=== PATIENT | male | born 1950 | race Caucasian/White ===

== ENCOUNTER 2016-09-15 06:50 | Emergency (ER) | payer OTHER ==
[2016-09-15 06:59] VITALS: TEMP 97.7
--- NOTE | 2016-09-15 07:42 | EDPHY ---
H & P Stated Complaint: pt says he slipped and fell yesterday, c/o pain swelling in L ankle/foot Time Seen by Provider: 09/15/16 07:41 - Medical/Surgical History Hx Asthma: No Hx Chronic Respiratory Disease: No Hx Diabetes: No Hx Cardiac Disease: No Hx Renal Disease: No Hx Cirrhosis: No Hx Alcoholism: No Hx HIV/AIDS: No Hx Splenectomy or Spleen Trauma: No Other PMH: bilat knee surg, skin ca removed, ddd - Social History Smoking Status: Former smoker Constitutional: Initial Vital Signs Temperature (C) 36.5 C 09/15/16 06:54 Heart Rate 85 09/15/16 06:54 Respiratory Rate 18 09/15/16 06:54 Blood Pressure 137/74 H 09/15/16 06:54 O2 Sat (%) 96 09/15/16 06:54 O2 Delivery Mode Room Air Allergies/Adverse Reactions: Sulfa (Sulfonamide Antibiotics) Allergy (Verified 09/15/16 06:59) Home Medications: Medication Instructions Recorded HYDROcodone/APAP 325 [[place] 1 - 2 each PO Q4-6PRN PRN #20 tab 09/15/16 10/325] Soma 09/15/16 Medical Decision Making ED Course/Re-evaluation: CHIEF COMPLAINT: Left heel pain HISTORY OF PRESENT ILLNESS: The patient is a 65 y/o male complaining of left heel pain with weight bearing secondary to an injury yesterday. He says [place] started to slid [place] an incline. He caught himself with his left ankle and had immediate "electric pain" along the lateral side. He now cramping extending from the base of his left heel to his lateral knee. He was able to walk on the toes of his left foot but has too much pain to bear weight on his heel. He denies weakness, paresthesias, or other injuries. REVIEW OF SYSTEMS: A 10 point review of systems was performed and is negative with the exception of the elements mentioned in the history of present illness. PHYSICAL EXAM: HR, BP, O2 Sat, RR. Temp noted General Appearance: Alert, well hydrated, appropriate, and non-toxic appearing. Head: Atraumatic without scalp tenderness or obvious injury Eyes: Pupils equal, round, reactive to light and accommodation, EOMI, no trauma , no injection. Ears: Clear bilaterally, no perforation, normal landmarks Nose: Atraumatic, no rhinorrhea, clear. Throat: There is no erythema or exudates, no lesions, normal tonsils, mucus membranes moist. Neck: Supple, 2+ carotid upstroke, nontender, no lymphadenopathy. Respiratory: No retractions, no distress, no wheezes, and no accessory muscle use. Lungs are clear to auscultation bilaterally. Cardiovascular: Regular rate and rhythm, no murmurs, rubs, or gallops. Bilateral carotid, radial, dorsalis pedis, and posterior tibial pulses intact. Good capillary refill all extremities. Gastrointestinal: Abdomen is soft, nontender, non-distended, no masses, no rebound, no guarding, no peritoneal signs. Musculoskeletal: Normal active ROM of all extremities, atraumatic. Neurological: Alert, appropriate, and interactive. The patient has normal DTRs and non-focal cranial nerves, motor, sensory, and cerebellar exam. Skin: No rashes, good turgor, no nodules on palpation. Past medical history: Degenerative disc disease Past surgical history: Bilateral knee surgeries Family history: Noncontributory Social history: DIAGNOSTICS/PROCEDURES/CRITICAL CARE TIME: Study: Left ankle x-ray Indication: pain, trauma Results: X-ray of the left ankle was obtained. The results of the study are 1. Evidence of underlying chondrocalcinosis in the tibiotalar articulation. Possible loose bodies posteriorly. 2. Large enthesophyte at plantar insertion of the calcaneus and evidence of underlying chronic plantar fasciitis or old injury. 3. Inflammatory change and tendinitis distal Achilles tendon. The study was read by the radiologist, Dr. Baker. I viewed the images myself on the PACS system. Study: CT of the left foot Indication: Pain, injury, Results: CT scan of the foot was obtained. The results of the study are 1. Severe chronic plantar fasciitis. There could be an acute component with tear and avulsion from the insertion of the calcaneus versus chronic calcifications within the plantar fascia. Large enthesophyte at the plantar insertion of the calcaneus. 2. Moderate to severe tendinopathy distal Achilles tendon with soft tissue calcification. 3. Tendinopathy peroneus longus tendon and mild tenosynovitis. 4. Degenerative change tibiotalar joint with debris or loose bodies posteriorly and chondrocalcinosis. The study was read by the radiologist, Dr. Baker. I viewed the images myself on the PACS system. DIFFERENTIAL DIAGNOSIS: The differential diagnosis for the patient's foot pain included but was not limited to plantar fascia tear, plantar fasciitis, heel spur, fracture, arthritis. MEDICAL DECISION MAKING: This is a healthy 65 y/o male presenting with left heel and lateral ankle pain following an injury yesterday. His pain is not reproducible on exam. He is neurovascularly intact. Plan for left ankle x-ray. X-ray shows some calcifications underling the calcaneus that could indicate plantar fasciitis. Heel spur also present. Plan for foot CT to better evaluate the area. CT confirms severe chronic plantar fasciitis that could have acute component. Patient will be discharged in post op shoe with instructions to use ibuprofen and [place] for symptoms. He's been referred to podiatry for follow up. Return precautions given. He is comfortable with this plan. Departure - Departure Disposition: Home, Routine, Self-Care Clinical Impression: possible torn plantar fascia, Left foot pain Condition: Good Instructions: Heel Spur (ED) Additional Instructions: 1. Take 600mg ibuprofen 3 times daily for the next 2-3 days. 2. Use [place] as prescribed when needed for pain. 3. Wear post op shoe for comfort until follow up. Weight bare as tolerated or use crutches. 4. Follow up with Dr. Zee, cloud developer, within the week. 5. Return to the ED for severe pain, dramatic increase in redness or swelling, weakness or numbness in your foot, or other worsening of condition. Referrals: Arpita Ramos PA [Primary Care Provider] - As per Instructions Amador Zee DPM [Doctor of Podiatric Medicine] - As per Instructions Prescriptions: HYDROcodone/APAP 10/325 [[place] 10/325] 1 - 2 each PO Q4-6PRN PRN #20 tab PRN Reason: Pain, Moderate Report Scribed for: Joel Vasquez Report Scribed by: Amanda Kay Date of Report: 09/15/16 Time of Report: 07:45
--- NOTE | 2016-09-15 08:53 | DX ---
Left Ankle, Three Views History: Ankle pain after a fall. Findings: Mild soft tissue swelling is seen at the left ankle. There is evidence of underlying chondr ocalcinosis with calcification at the tibiotalar articulation. Possible loose bodies are seen posteri gilberto. No evidence for acute fracture or dislocation. A large enthesophyte is seen in the plantar inse rtion of the calcaneus. Soft tissue calcification is also seen in the region of the plantar fascia. S oft tissue swelling is seen at the distal Achilles. Impression: 1. Evidence of underlying chondrocalcinosis in the tibiotalar articulation. Possible loose bodies pos teriorly. 2. Large enthesophyte at plantar insertion of the calcaneus and evidence of underlying chronic planta r fasciitis or old injury. 3. Inflammatory change and tendinitis distal Achilles tendon.
--- NOTE | 2016-09-15 09:25 | CT ---
CT Lower Extremity, Left Ankle History: Severe calcaneus pain when bearing weight. Comparison: X-rays also performed today. Technique: 1.5-mm helical images were obtained of the left ankle without contrast. Multiplanar reform ation was performed. Radiation dose reduction technique was utilized. Findings: No evidence for acute fracture. There is chondrocalcinosis in the tibiotalar joint. There i s debris or loose bodies posterior recess of the tibiotalar joint. The plantar fascia is thickened th roughout, particularly the medial cord. Large enthesophyte is seen in the plantar insertion of the ca lcaneus. There is mild adjacent erosion or possible avulsion from the plantar insertion of the calcan eus. Avulsion or soft tissue calcification is seen near the enthesophyte and also in the plantar fasc ia 2.3 cm from the insertion to the calcaneus. Distal Achilles tendon is enlarged with calcifications at the insertion to the calcaneus. Peroneus longus tendon is in enlarged and probable mild fluid dis tention of the tendon sheath. Impression: 1. Severe chronic plantar fasciitis. There could be an acute component with tear and avulsion from th e insertion of the calcaneus versus chronic calcifications within the plantar fascia. Large enthesoph yte at the plantar insertion of the calcaneus. 2. Moderate to severe tendinopathy distal Achilles tendon with soft tissue calcification. 3. Tendinopathy peroneus longus tendon and mild tenosynovitis. 4. Degenerative change tibiotalar joint with debris or loose bodies posteriorly and chondrocalcinosis . Results called to Dr. Joel Vasquez.
[2016-09-15 09:30] VITALS: BP 146/86; PULSE 80; RESP 16; O2SAT 98
== END 2016-09-15 09:33 | disposition home or self-care (01) ==
DX: S99.922A Unspecified injury of left foot, initial encounter (principal); Z87.891 Personal history of nicotine dependence; W01.0XXA Fall on same level from slipping, tripping and stumbling without subsequent striking against object, initial encounter
CPT/HCPCS: L3260

== ENCOUNTER 2017-07-15 09:22 | Day surgery (SDC) | payer OTHER ==
[2017-07-15] MEDS ORDERED: ETHYL ALCOHOL 98% 5 ML AMP MISC ONE (11:00)
[2017-07-15 11:05] VITALS: PULSE 58; RESP 16
[2017-07-15] MEDS ORDERED: MEPERIDINE 25 MG/ML SYR IVP PRN (11:06)
[2017-07-15] MEDS ORDERED: FLUMAZENIL 0.5 MG/5 ML MDV IVP PRN (11:06)
[2017-07-15] MEDS ORDERED: HEPARIN 10,000 UNIT/10 ML MDV IVP PRN (11:06)
[2017-07-15] MEDS ORDERED: GLUCAGON HCL 1 MG VIAL IVP PRN (11:06)
[2017-07-15] MEDS ORDERED: MIDAZOLAM 2 MG/2 ML VIAL IVP PRN (11:06)
[2017-07-15] MEDS ORDERED: PROTAMINE SULFATE 50 MG/5 ML VIAL IVP PRN (11:06)
[2017-07-15] MEDS ORDERED: fentaNYL 100 MCG/2 ML INJ IVP PRN (11:06)
[2017-07-15] MEDS ORDERED: ALTEPLASE 2 MG VIAL IVP PRN (11:06)
[2017-07-15] MEDS ORDERED: NALOXONE HCL 0.4 MG/ML INJ IVP PRN (11:06)
[2017-07-15] MEDS ORDERED: NS 1,000 ML IV SCH (11:15)
[2017-07-15] MEDS ORDERED: IOPAMIDOL (ISOVUE-300) 150 ML BTL ONE (11:24)
--- NOTE | 2017-07-15 11:25 | PDGENHP ---
History & Physical Chief Complaint: Pain lower right back History of Present Illness: One year duration. Worsening over last 3-5 months. Relevant Physical Exam: Asymptomatic bicuspid aortic valve, dilated ascending aorta, followed by cardiology. Cardiorespiratory Assessment: Lungs clear to auscultation. Heart: RRR 60 bpm. 3 /6 systolic ejection murmur.
--- NOTE | 2017-07-15 11:26 | PDPROPOC ---
Sedation Plan of Care Sedation Plan of Care: vital signs stable, mental status noted, patient educated of risks, benefits, alternatives, patient can tolerate sedation ASA Classification: ASA 2 Planned drugs: fentanyl, midazolam Mallampati Score: Class 1 Mallampati Reference Image: Patient passed 3-3-2 rule?: Yes
--- NOTE | 2017-07-15 13:12 | PDRADPN ---
Radiology Procedure Note Date of Procedure: 07/15/17 Radiologist: Naveen Hastings Anesthesia: IV Sedation Pre-op Diagnosis: Right renal cyst Post-op Diagnosis: Same Indication: Right lower back pain Procedure: Drainage and alcohol sclerosis of right renal cyst Finding(s): 880 ml volume of clear cyst fluid. 60 ml absolute alcohol instilled and recovered after 25 minutes Inf/Abcess present in the surg proc area at time of surgery?: No EBL: Minimal Complications: 0 Specimen(s): Clear cyst fluid; discarded.
[2017-07-15] MEDS ORDERED: ONDANSETRON 4 MG/2 ML VIAL IVP PRN (13:13)
[2017-07-15] MEDS ORDERED: ACETAMINOPHEN 325 MG TAB PO PRN (13:13)
[2017-07-15] MEDS ORDERED: ETHYL ALCOHOL 98% 5 ML AMP ONE (13:23)
[2017-07-15 14:12] VITALS: BP 130/64; TEMP 97.9; O2SAT 94
== END 2017-07-15 13:59 | disposition home or self-care (01) ==
LOC: FIMAGING 09:22
PROVIDERS: ATTEND Radiology Diagnostic Radiology
DX: N28.1 Cyst of kidney, acquired (principal); M54.5 Low back pain; Q23.1 Congenital insufficiency of aortic valve
CPT/HCPCS: 49185; 50390; 74470; 99152; 99153; C1729; C1769; J2250; J3010; Q9967

== ENCOUNTER → 2017-12-12 | Outpatient (CLI) | payer OTHER | LOC: BMCIMAGING 13:07 | PROVIDERS: ATTEND Emergency Medicine | DX: M25.871 Other specified joint disorders, right ankle and foot (principal); M77.31 Calcaneal spur, right foot; M20.11 Hallux valgus (acquired), right foot ==

== ENCOUNTER → 2019-02-09 | Outpatient (CLI) | payer OTHER | LOC: BMCIMAGING 14:19 ==